=== PATIENT | male | born 1955 | race Caucasian/White ===

== ENCOUNTER 2022-04-30 04:16 | Day surgery (SDC) | payer BC ==
[2022-04-29 09:36] VITALS: BMI 29.6
[2022-04-30 10:29] VITALS: TEMP 97.6
[2022-04-30 10:42] VITALS: RESP 18
[2022-04-30 11:24] VITALS: BP 140/66
[2022-04-30 11:30] VITALS: PULSE 73
== END 2022-04-30 11:10 | disposition home or self-care (01) ==
LOC: JASU-ENDO 04:16
PROVIDERS: ATTEND Internal Medicine Gastroenterology
PROC: 0DBL8ZX Excision of Transverse Colon, Via Natural or Artificial Opening Endoscopic, Diagnostic (ICD-10-PCS; 2022-04-30)
PROC: 0DBN8ZX Excision of Sigmoid Colon, Via Natural or Artificial Opening Endoscopic, Diagnostic (ICD-10-PCS; 2022-04-30)
PROC: 0DBP8ZX Excision of Rectum, Via Natural or Artificial Opening Endoscopic, Diagnostic (ICD-10-PCS; 2022-04-30)
PROC: 0DBC8ZX Excision of Ileocecal Valve, Via Natural or Artificial Opening Endoscopic, Diagnostic (ICD-10-PCS; principal; 2022-04-30 10:00)
DX: Z12.11 Encounter for screening for malignant neoplasm of colon (principal); R19.5 Other fecal abnormalities; K62.1 Rectal polyp; D12.5 Benign neoplasm of sigmoid colon; D12.3 Benign neoplasm of transverse colon; K57.30 Diverticulosis of large intestine without perforation or abscess without bleeding
CPT/HCPCS: 82962; 88305-TC

== ENCOUNTER 2023-09-02 03:50 | Inpatient (IN) | payer OTHER ==
[2023-08-31 12:31] VITALS: BMI 27.0
[2023-09-02] MEDS ORDERED: ceFAZolin SODIUM 1 GM VIAL ONE (06:25)
[2023-09-02] MEDS ORDERED: HEPARIN NA (PORCINE) 5,000 UNITS/ML 1ML VIAL ONE (07:22)
[2023-09-02] MEDS ORDERED: PROPOFOL 40 ML ONE (07:27)
[2023-09-02] MEDS ORDERED: FENTANYL CITRATE/PF 50 MCG/ML VIAL ONE ×5 (07:27→12:44)
[2023-09-02] MEDS ORDERED: MIDAZOLAM HCL 2 MG/2 ML SINGLE DOSE VIAL ONE (07:28)
[2023-09-02] MEDS ORDERED: SUCCINYLCHOLINE CHLORIDE 200 MG/10 ML SYRINGE ONE (07:28)
[2023-09-02] MEDS ORDERED: CEFAZOLIN 2 GM in DEXTROSE 5%-WATER - 100 ML IVPB ONE (08:00)
[2023-09-02] MEDS ORDERED: ceFAZolin SODIUM 1 GM VIAL IVPB ONE (08:18)
[2023-09-02] MEDS ORDERED: ALBUTEROL SO4 HFA INHALER IH ONE (08:18)
[2023-09-02] MEDS ORDERED: ROCURONIUM BROMIDE 50 MG/5 ML SYRINGE ONE ×2 (08:19→10:06)
[2023-09-02] MEDS ORDERED: PAPAVERINE HCL 30 MG/1 ML 10 ML VIAL NR ONE (08:20)
[2023-09-02] MEDS ORDERED: HYDROmorphone HCl 2 MG/ML VIAL ONE (08:31)
[2023-09-02] MEDS ORDERED: NEOSTIGMINE METHYLSULFATE 0.5 MG/1 ML - 10 ML MDV ONE (11:29)
[2023-09-02] MEDS ORDERED: POVIDONE-IODINE OINTMENT 10% - 28.4 GM TUBE ONE (11:37)
[2023-09-02] MEDS ORDERED: POVIDONE-IODINE OINTMENT 10% - 28.4 GM TUBE TP ONE (11:42)
[2023-09-02] MEDS ORDERED: PROMETHAZINE HCL 25 MG/1 ML VIAL IVPB PRN (12:02)
[2023-09-02] MEDS ORDERED: LACTATED RINGERS SOLUTION 1,000 ML IV SCH (12:15)
[2023-09-02] MEDS ORDERED: ALBUTEROL SO4 0.083% IH SOL 2.5 MG/3 ML VIAL.NEB. NEB ONE (12:44)
[2023-09-02] MEDS ORDERED: ALBUTEROL SULFATE 0.021% (0.63 MG/3 ML) VIAL.NEB NEB ONE (12:46)
[2023-09-02] MEDS: oxyCODONE HCL 5 MG TABLET PO PRN ×2 (16:30→21:39)
[2023-09-02] MEDS ORDERED: morphine CARPU-JECT 4 MG/1 ML DISP.SYRIN IVPUSH PRN (17:11)
[2023-09-02] MEDS ORDERED: PATIENT'S OWN MEDICATION (NON-FORMULARY) (Ipratropium/Albuterol Sulfate 1 PUFF Inhaler) IH PRN (17:52)
[2023-09-02] MEDS ORDERED: CEFAZOLIN 1 GM in DEXTROSE 5%-WATER - 50 ML IVPB STA (20:53)
[2023-09-02] MEDS: MUPIROCIN 2% TOPICAL OINTMENT FOR DECOLONIZATION NS SCH (21:41)
[2023-09-02] MEDS: CHLORHEXIDINE GLUCONATE 4% CLEANSER FOR DECOLONIZATION TP SCH (21:41)
[2023-09-02] MEDS: ATORVASTATIN CA 20 MG TABLET (FP) PO SCH (21:41)
[2023-09-02] MEDS: INSULIN SLIDING SCALE (NOVOLOG) 1 VIAL SQ SCH (22:17)
[2023-09-03] MEDS: oxyCODONE HCL 5 MG TABLET PO PRN ×4 (03:15→22:05)
[2023-09-03] MEDS: INSULIN SLIDING SCALE (NOVOLOG) 1 VIAL SQ SCH ×4 (06:34→23:02)
[2023-09-03 07:33] LABS: BASO % 0.5 % (0-2.0); EOS % 0.7 % (0-4.5); HEMATOCRIT 43.6 % (35.4-49); HEMOGLOBIN 14.3 GM/dL (11.7-16.9); LYMPH % 10.5 % (8-40); MCH 32.1 pg (25.7-33.7); MCHC 32.8 g/dl (32.0-35.9); MEAN CELL VOLUME 97.7 fl (80-96); MEAN PLT VOLUME 7.2 fl (7.5-11.1); MONO % 9.5 % (3.8-10.2); NEUT % 78.8 % (42.8-82.8); PLATELET COUNT 338 10^3/uL (134-434); RBC 4.46 M/mm3 (4.00-5.60); RDW 15.6 % (11.9-15.9); WHITE BLOOD COUNT 13.3 K/mm3 (4.0-10.0)
[2023-09-03] MEDS ORDERED: ACETAMINOPHEN 325 MG TABLET (FP) PO PRN (07:47)
[2023-09-03 07:49] LABS: POTASSIUM 4.8 mmol/L (3.5-5.1)
[2023-09-03 07:51] LABS: CALCIUM 8.4 mg/dL (8.5-10.1)
[2023-09-03 07:52] LABS: BLOOD UREA NITROGEN 25.3 mg/dL (7-18); MAGNESIUM 1.9 mg/dL (1.8-2.4)
[2023-09-03 07:55] LABS: CREATININE 1.4 mg/dL (0.55-1.3); PHOSPHOROUS 3.5 mg/dL (2.5-4.9)
[2023-09-03 07:56] LABS: TOT PROT 6.2 g/dl (6.4-8.2)
[2023-09-03 08:01] LABS: BILIRUBIN,TOTAL 0.6 mg/dL (0.2-1)
[2023-09-03] MEDS ORDERED: IPRATROPIUM/ALBUTEROL (COMBIVENT) RESPIMAT 20-100 MCG IH PRN (08:18)
[2023-09-03] MEDS: MUPIROCIN 2% TOPICAL OINTMENT FOR DECOLONIZATION NS SCH ×2 (09:22→22:07)
[2023-09-03] MEDS: ACETAMINOPHEN 325 MG TABLET (FP) PO PRN ×3 (09:32→22:06)
[2023-09-03] MEDS ORDERED: CLOPIDOGREL BISULFATE 75 MG TABLET (FP) PO SCH (10:00)
[2023-09-03] MEDS ORDERED: RAMIPRIL 5 MG CAPSULE PO SCH (10:00)
[2023-09-03] MEDS ORDERED: PATIENT'S OWN MEDICATION (NON-FORMULARY) (Multivitamin [Multivitamin] 1 EACH Tablet) PO SCH (10:00)
[2023-09-03] MEDS ORDERED: ASPIRIN 81 MG CHEWABLE TABLETS PO SCH (10:00)
[2023-09-03] MEDS ORDERED: ASCORBIC ACID 500 MG TABLET (FP) PO SCH (10:00)
[2023-09-03] MEDS ORDERED: MULTIVITAMINS (DAILY MVI) TABLET (FP) PO SCH (10:00)
[2023-09-03] MEDS ORDERED: PATIENT'S OWN MEDICATION (NON-FORMULARY) (Ascorbate Calcium [Vitamin C] 500 MG Tablet) PO SCH (10:00)
[2023-09-03] MEDS ORDERED: MELATONIN 5 MG TABLETS PO PRN (20:59)
[2023-09-03] MEDS: ATORVASTATIN CA 20 MG TABLET (FP) PO SCH (22:05)
[2023-09-03] MEDS: CHLORHEXIDINE GLUCONATE 4% CLEANSER FOR DECOLONIZATION TP SCH (22:07)
[2023-09-03] MEDS ORDERED: morphine CARPU-JECT 2 MG/1 ML DISP.SYRIN IVPUSH PRN (22:45)
[2023-09-04] MEDS ORDERED: ACETAMINOPHEN 325 MG TABLET (FP) PO PRN (00:10)
[2023-09-04] MEDS ORDERED: oxyCODONE HCL 5 MG TABLET PO PRN (00:10)
[2023-09-04] MEDS: INSULIN SLIDING SCALE (NOVOLOG) 1 VIAL SQ SCH ×4 (08:00→22:18)
[2023-09-04] MEDS: ASPIRIN 81 MG CHEWABLE TABLETS PO SCH (09:02)
[2023-09-04] MEDS: RAMIPRIL 5 MG CAPSULE PO SCH (09:02)
[2023-09-04] MEDS: CLOPIDOGREL BISULFATE 75 MG TABLET (FP) PO SCH (09:02)
[2023-09-04] MEDS: MULTIVITAMINS (DAILY MVI) TABLET (FP) PO SCH (09:02)
[2023-09-04] MEDS: ASCORBIC ACID 500 MG TABLET (FP) PO SCH (09:03)
[2023-09-04] MEDS ORDERED: MUPIROCIN 2% TOPICAL OINTMENT FOR DECOLONIZATION NS SCH (10:00)
[2023-09-04] MEDS ORDERED: IPRATROPIUM/ALBUTEROL (COMBIVENT) RESPIMAT 20-100 MCG IH PRN (11:13)
[2023-09-04 16:29] LABS: CREATININE 1.4 mg/dL (0.55-1.3)
[2023-09-04] MEDS: ACETAMINOPHEN 325 MG TABLET (FP) PO SCH ×2 (18:45→20:24)
[2023-09-04] MEDS: oxyCODONE HCL 5 MG TABLET PO PRN (18:54)
[2023-09-04] MEDS ORDERED: ATORVASTATIN CA 20 MG TABLET (FP) PO SCH (22:00)
[2023-09-04] MEDS ORDERED: CHLORHEXIDINE GLUCONATE 4% CLEANSER FOR DECOLONIZATION TP SCH (22:00)
[2023-09-04] MEDS ORDERED: INSULIN (NOVOLOG) ASPART 100 UNITS/ML 10ML VIAL ONE (22:15)
[2023-09-04] MEDS: HEPARIN NA (PORCINE) 5,000 UNITS/ML 1ML VIAL SQ SCH (22:18)
[2023-09-05] MEDS: ACETAMINOPHEN 325 MG TABLET (FP) PO SCH ×3 (02:40→14:36)
[2023-09-05] MEDS ORDERED: INSULIN (NOVOLOG) ASPART 100 UNITS/ML 10ML VIAL ONE ×2 (06:19→12:15)
[2023-09-05] MEDS: INSULIN SLIDING SCALE (NOVOLOG) 1 VIAL SQ SCH ×2 (06:25→12:23)
[2023-09-05] MEDS: HEPARIN NA (PORCINE) 5,000 UNITS/ML 1ML VIAL SQ SCH ×2 (06:25→14:42)
[2023-09-05 08:29] LABS: BASO % 0.5 % (0-2.0); HEMATOCRIT 40.7 % (35.4-49); HEMOGLOBIN 13.3 GM/dL (11.7-16.9); MCH 32.1 pg (25.7-33.7); MCHC 32.7 g/dl (32.0-35.9); MEAN CELL VOLUME 97.9 fl (80-96); MEAN PLT VOLUME 7.1 fl (7.5-11.1); MONO % 11.6 % (3.8-10.2); NEUT % 71.9 % (42.8-82.8); PLATELET COUNT 332 10^3/uL (134-434); RBC 4.16 M/mm3 (4.00-5.60); RDW 14.9 % (11.9-15.9); WHITE BLOOD COUNT 11.5 K/mm3 (4.0-10.0)
[2023-09-05 08:44] LABS: POTASSIUM 4.1 mmol/L (3.5-5.1)
[2023-09-05 08:47] LABS: ALBUMIN 2.6 g/dl (3.4-5.0); BLOOD UREA NITROGEN 33.2 mg/dL (7-18); CALCIUM 8.5 mg/dL (8.5-10.1)
[2023-09-05 08:50] LABS: CREATININE 1.5 mg/dL (0.55-1.3); PHOSPHOROUS 3.7 mg/dL (2.5-4.9)
[2023-09-05 08:51] LABS: BILIRUBIN,TOTAL 1.2 mg/dL (0.2-1)
[2023-09-05] MEDS ORDERED: DOCUSATE SODIUM 100 MG CAPSULE (FP) PO SCH (10:00)
[2023-09-05] MEDS: ASPIRIN 81 MG CHEWABLE TABLETS PO SCH (10:07)
[2023-09-05] MEDS: MULTIVITAMINS (DAILY MVI) TABLET (FP) PO SCH (10:07)
[2023-09-05] MEDS: ASCORBIC ACID 500 MG TABLET (FP) PO SCH (10:07)
[2023-09-05] MEDS: RAMIPRIL 5 MG CAPSULE PO SCH (10:07)
[2023-09-05] MEDS: CLOPIDOGREL BISULFATE 75 MG TABLET (FP) PO SCH (10:18)
[2023-09-05 15:10] VITALS: BP 94/51; PULSE 63; RESP 18; TEMP 98.1
[2023-09-05] MEDS: oxyCODONE HCL 5 MG TABLET PO PRN (16:43)
== END 2023-09-05 17:04 | disposition home or self-care (01) | DRG 254 ==
LOC: J2C 03:50 → JICU 14:34 → J8W 09-04 20:50
PROVIDERS: ADMIT Surgery; ATTEND Internal Medicine
PROC: 041L09L Bypass Left Femoral Artery to Popliteal Artery with Autologous Venous Tissue, Open Approach (ICD-10-PCS; 2023-09-02)
PROC: 3E05017 Introduction of Other Thrombolytic into Peripheral Artery, Open Approach (ICD-10-PCS; 2023-09-02)
PROC: 04CL0ZZ Extirpation of Matter from Left Femoral Artery, Open Approach (ICD-10-PCS; principal; 2023-09-02 08:00)
DX: E11.51 Type 2 diabetes mellitus with diabetic peripheral angiopathy without gangrene (principal); I70.222 Atherosclerosis of native arteries of extremities with rest pain, left leg; I10 Essential (primary) hypertension; E78.5 Hyperlipidemia, unspecified; J44.9 Chronic obstructive pulmonary disease, unspecified; G47.33 Obstructive sleep apnea (adult) (pediatric); I70.298 Other atherosclerosis of native arteries of extremities, other extremity; D72.829 Elevated white blood cell count, unspecified; K59.00 Constipation, unspecified
CPT/HCPCS: 36415; 80053; 82565; 82962; 83735; 84100; 85025; 86850; 86900; 86901; 87635; 88304-TC; 88311-TC; 94760; 97116-GP; 97162-GP; J1644; J3535

== ENCOUNTER 2024-04-07 09:37 | Emergency (ER) | payer OTHER ==
[2024-04-07 09:41] VITALS: BP 144/80; PULSE 68; RESP 18; TEMP 98.4; BMI 29.2
[2024-04-07] MEDS ORDERED: KETOROLAC TROMETHAMINE 15 MG/ML VIAL ONE (09:55)
[2024-04-07] MEDS: SODIUM CHLORIDE 0.9% 500 ML INFUS.BAG IV ONE (10:03)
[2024-04-07] MEDS: KETOROLAC TROMETHAMINE 15 MG/ML VIAL IVPUSH ONE (10:03)
[2024-04-07 10:16] LABS: BASO % 1.1 % (0-2.0); EOS % 3.9 % (0-4.5); HEMATOCRIT 45.6 % (35.4-49); HEMOGLOBIN 14.9 GM/dL (11.7-16.9); LYMPH % 13.3 % (8-40); MCH 31.7 pg (25.7-33.7); MCHC 32.7 g/dl (32.0-35.9); MEAN CELL VOLUME 96.9 fl (80-96); MEAN PLT VOLUME 6.4 fl (7.5-11.1); MONO % 8.6 % (3.8-10.2); NEUT % 73.1 % (42.8-82.8); PLATELET COUNT 395 10^3/uL (134-434); RDW 14.8 % (11.9-15.9); WHITE BLOOD COUNT 10.3 K/mm3 (4.0-10.0)
[2024-04-07 10:23] LABS: EPI CELLS 2 /uL (0-25.1); HYALINE CASTS 0 /uL (0-3.1); PH,URINE 5.5 (5.0-8.0); URINE APPEARANCE CLEAR; URINE BACTERIA 6 /uL (0-1359); URINE BILIRUBIN NEGATIVE (NEGATIVE); URINE COLOR YELLOW; URINE GLUCOSE (UA) 3+ (NEGATIVE); URINE KETONE NEGATIVE (NEGATIVE); URINE LEUK ESTERASE NEGATIVE (NEGATIVE); URINE NITRITE NEGATIVE (NEGATIVE); URINE PROTEIN 2+ (NEGATIVE); URINE RBC 6 /uL (0-23.9); URINE UROBILINOGEN 0.2 mg/dL (0.2-1.0); URINE WBC 3 /uL (0-25.8)
[2024-04-07 10:38] LABS: POTASSIUM 4.6 mmol/L (3.5-5.1)
[2024-04-07 10:40] LABS: ALBUMIN 3.2 g/dl (3.4-5.0); BLOOD UREA NITROGEN 20.8 mg/dL (7-18); CALCIUM 8.8 mg/dL (8.5-10.1)
[2024-04-07 10:43] LABS: CREATININE 1.5 mg/dL (0.55-1.3)
[2024-04-07 10:45] LABS: BILIRUBIN,TOTAL 0.3 mg/dL (0.2-1); TOT PROT 6.6 g/dl (6.4-8.2)
== END 2024-04-07 12:41 | disposition home or self-care (01) ==
LOC: JER 09:37
PROC: 3E0333Z Introduction of Anti-inflammatory into Peripheral Vein, Percutaneous Approach (ICD-10-PCS; principal; 2024-04-07)
DX: K57.30 Diverticulosis of large intestine without perforation or abscess without bleeding (principal); R11.2 Nausea with vomiting, unspecified; R19.7 Diarrhea, unspecified; R10.9 Unspecified abdominal pain
CPT/HCPCS: 36415; 74176-TC; 80053; 81003; 85025; 87086; 99284-25

== ENCOUNTER 2024-09-13 04:01 | Day surgery (SDC) | payer OTHER ==
[2024-09-12 10:42] VITALS: BMI 28.1
[2024-09-13] MEDS ORDERED: LIDOCAINE HCL 1%, 10 MG/ML (20ML VIAL) ONE ×2 (08:18→08:44)
[2024-09-13] MEDS ORDERED: HEPARIN NA (PORCINE) 5,000 UNITS/ML 1ML VIAL ONE ×3 (08:18→10:29)
[2024-09-13] MEDS ORDERED: oxyCODONE HCL 5 MG TABLET PO PRN (08:25)
[2024-09-13] MEDS ORDERED: ONDANSETRON 4 MG/2 ML VIAL IVPUSH PRN (08:25)
[2024-09-13] MEDS ORDERED: LACTATED RINGERS SOLUTION 1,000 ML IV SCH (08:30)
[2024-09-13] MEDS ORDERED: MIDAZOLAM HCL 2 MG/2 ML SINGLE DOSE VIAL ONE (08:37)
[2024-09-13] MEDS ORDERED: PROPOFOL 20 ML ONE ×2 (08:37→09:55)
[2024-09-13] MEDS ORDERED: ONDANSETRON 4 MG/2 ML VIAL ONE (10:01)
[2024-09-13] MEDS ORDERED: DEXAMETHASONE SOD PHOSPHATE 4 MG/1 ML VIAL ONE (10:01)
[2024-09-13] MEDS ORDERED: LIDOCAINE HCL/PF 2% SDV 5ML VIAL ONE (10:01)
[2024-09-13] MEDS ORDERED: ceFAZolin SODIUM 1 GM VIAL ONE (10:02)
[2024-09-13] MEDS: LIDOCAINE HCL 1%, 10 MG/ML (20ML VIAL) INF ONE (10:14)
[2024-09-13] MEDS: IOHEXOL 180 MG/1 ML ML IJ ONE (10:45)
[2024-09-13] MEDS ORDERED: ACETAMINOPHEN 325 MG TABLET (FP) PO PRN (11:09)
[2024-09-13 12:42] VITALS: RESP 18
[2024-09-13 13:32] VITALS: BP 126/72; PULSE 70; TEMP 97.9
== END 2024-09-13 13:30 | disposition home or self-care (01) ==
LOC: JASU-SURG 04:01
PROVIDERS: ATTEND Surgery
PROC: 047N3Z1 Dilation of Left Popliteal Artery using Drug-Coated Balloon, Percutaneous Approach (ICD-10-PCS; principal; 2024-09-13 09:30)
DX: T82.858A Stenosis of other vascular prosthetic devices, implants and grafts, initial encounter (principal); I73.9 Peripheral vascular disease, unspecified; Y92.9 Unspecified place or not applicable
CPT/HCPCS: 37224; C1725; C2623; 76000-TC-FY; 82962; 94760; C1760; C1769; J1644

== ENCOUNTER 2025-05-10 12:22 | Emergency (ER) | payer OTHER ==
[2025-05-10 12:47] VITALS: TEMP 98.3; BMI 26.5
[2025-05-10] MEDS ORDERED: ACETAMINOPHEN INJECTION 100 ML ONE (13:57)
[2025-05-10] MEDS ORDERED: FAMOTIDINE 20 MG/50 ML IVPB 20 MG/50 ML MG IVPB ONE (13:58)
[2025-05-10] MEDS: FAMOTIDINE 20 MG/50 ML IVPB 20 MG/50 ML MG IVPB ONE (14:10)
[2025-05-10] MEDS: ACETAMINOPHEN 1000 MG/100 ML BAG IVPB ONE (14:10)
[2025-05-10 14:37] LABS: ABSOLUTE IMMATURE GRANULOCYTES 0.06 x10^3/uL (0.0-0.031); BASOPHILS # 0.10 x10^3/uL (0.01-0.08); EOSINOPHIL % 0.7 % (0.8-7.0); EOSINOPHILS # 0.09 x10^3/uL (0.04-0.54); MCHC 32.7 g/dl (32.3-36.5); MEAN CELL VOLUME 95.7 fl (79.0-92.2); MEAN PLT VOLUME 8.9 fl (9.4-12.4); MONOCYTE # 1.07 x10^3/uL (0.30-0.82); MONOCYTE % 8.3 % (5.3-12.2); RDW 14.1 % (12.2-16.6)
[2025-05-10 14:42] LABS: INR 1.09 (0.83-1.09); PROTHROMBIN TIME (PATIENT) 11.9 SEC (9.7-13.0)
[2025-05-10 14:45] LABS: ACTIVATED PTT 29.4 SECONDS (25.2-36.5)
[2025-05-10 14:58] LABS: GLUCOSE,RANDOM 75.0 mg/dL (74-106); TOT PROT 6.4 g/dl (6.4-8.2)
[2025-05-10 14:59] LABS: CO2 21.0 mmol/L (21-32)
[2025-05-10 15:01] LABS: ALK PHOS 84.0 U/L (40-150)
[2025-05-10 15:03] LABS: SGOT/AST 29.0 U/L (5-34); SGPT/ALT 12.0 U/L (0-55)
[2025-05-10 15:04] LABS: CREATININE 1.67 mg/dL (0.55-1.3)
[2025-05-10 15:25] LABS: HIV INTERPRETATION NEGATIVE (NEGATIVE)
[2025-05-10 15:26] LABS: HCV DIAGNOSTIC IN-HOUSE W/RFLX NON-REACTIVE (NONREACTIVE)
[2025-05-10] MEDS ORDERED: ASPIRIN 325 MG TABLET ONE (15:56)
[2025-05-10] MEDS: HEPARIN INFUSION - 25,000 UNITS/500 ML INFUS.BAG IVPB SCH (16:04)
[2025-05-10] MEDS: ASPIRIN 325 MG TABLET PO ONE (16:07)
[2025-05-10] MEDS: HEPARIN - 25,000 UNIT in SODIUM CHLORIDE 495 ML IV SCH (16:23)
[2025-05-10] MEDS ORDERED: HEPARIN NA (PORCINE) 5,000 UNITS/ML 1ML VIAL IVPUSH PRN ×2 (16:24)
[2025-05-10] MEDS ORDERED: MORPHINE SULFATE 2 MG/ML SYRINGE ONE (16:58)
[2025-05-10] MEDS: morphine CARPU-JECT 2 MG/1 ML DISP.SYRIN IVPUSH ONE (17:02)
[2025-05-10 18:11] VITALS: BP 142/74; PULSE 67; RESP 17
== END 2025-05-10 19:50 | disposition short-term general hospital (02) ==
LOC: JER 12:22
PROC: 3E033GC Introduction of Other Therapeutic Substance into Peripheral Vein, Percutaneous Approach (ICD-10-PCS; principal; 2025-05-10)
PROC: 3E033NZ Introduction of Analgesics, Hypnotics, Sedatives into Peripheral Vein, Percutaneous Approach (ICD-10-PCS; 2025-05-10)
PROC: 3E033NZ Introduction of Analgesics, Hypnotics, Sedatives into Peripheral Vein, Percutaneous Approach (ICD-10-PCS; 2025-05-10)
DX: I21.4 Non-ST elevation (NSTEMI) myocardial infarction (principal); I10 Essential (primary) hypertension; R07.81 Pleurodynia; R55 Syncope and collapse; R06.02 Shortness of breath; R10.84 Generalized abdominal pain
CPT/HCPCS: 36415; 70450-TC; 71045-TC-FY; 80053; 82962; 83690; 84484; 85025; 85610; 85730; 86803; 86850; 86900; 86901; 87389; 93005; 93010; 99285-25; J1644